=== PATIENT | female | born 1960 | race Caucasian/White ===

== ENCOUNTER 2017-01-09 11:56 | Emergency (ER) | payer OTHER ==
[~2017-01-09] VITALS: Ht 162.6 cm; Wt 111.0 kg
[~2017-01-09 11:56] MED LIST: AMIO200 PO; ASPI81 PO; ATOR40TA49 PO; B COTAB7 PO; BIOT5000 PO; DOCU1CAP39 PO; FISH500C PO; FURO1TAB93 PO; KCL20 PO; LEVO200T31 PO; METO25 PO; PLAV75TA PO; PROV200T11 PO; RED600TA PO; THERM PO; TURM450C PO; ULTR50TA PO; VENL75XR PO; VITATAB25 PO
[2017-01-09 12:09] VITALS: BP 123/57; PULSE 82; RESP 16; TEMP 99.3; O2SAT 98
--- NOTE | 2017-01-09 12:36 | PD ---
HPI Chief Complaint: Headache Time Seen by Provider: 12:35 Travel History International Travel<30 days: No Contact w/Intl Traveler<30days: No Traveled to known affect area: No History of Present Illness HPI while camping inadvertently stepped on stray cat which then bit her left "pinky toe" and now redness to left chan and pain has started to occur, not on any antibiotic treatment. feels weak, unknown vax status of cat, PFSH Past Medical History Blood Disorders: No Anxiety: Yes Depression: Yes Heart Rhythm Problems: Yes Cancer: No Cardiovascular Problems: Yes High Cholesterol: Yes Chest Pain: No Diabetes: Yes Diminished Hearing: No Endocrine: Yes Gastrointestinal Disorders: Yes Glaucoma: Yes (LEFT EYE) Genitourinary: Yes (HX INCONTINENCE) Headaches: Yes Hepatitis: No Hiatal Hernia: No Hypertension: Yes Immune Disorder: No Musculoskeletal: No Neurologic: Yes Psychiatric: No Reproductive: No Respiratory: Yes (SLEEP APNEA) Integumentary: No Sickle Cell Disease: No Sleep Apnea: Yes Thyroid Disease: Yes (PARATHYROIDECTOMY) Tubal Ligation: Yes (1987) Past Surgical History Abdominal Surgery: Yes (ASAD) Cardiac Surgery: Yes (STENT PLACED) Section: Yes (1981) Cholecystectomy: Yes Eye Surgery: Yes (ANGULAR LASER SURGERY OU) Gynecologic Surgery: Yes (82 ; TUBAL LIGATION; RT OOPHORECT) Hysterectomy: Yes (PARTIAL- RIGHT OVARY REMOVED) Thoracic Surgery: No Other Surgery: Yes Social History Alcohol Use: Yes (OCCASSIONAL) Tobacco Use: No (FORMER SMOKER) Substance Use: No Allergies-Medications (Allergen,Severity, Reaction): Coded Allergies: No Known Allergies (Verified Adverse Reaction, Unknown, 01/09/17) Reported Meds & Prescriptions Reported Meds & Active Scripts Active Augmentin (Amoxicillin-Clavulanate) 875-125 Mg Tab 1 Tab PO BID 10 Days Reported Lipitor (Atorvastatin Calcium) 40 Mg Tab 40 Mg PO DAILY Lasix (Furosemide) 20 Mg Tab 20 Mg PO DAILY PRN K-Tab (Potassium Chloride) 20 Meq Tab 20 Meq PO DAILY PRN Modafinil 200 Mg Tab 200 Mg PO DAILY PRN Aspirin 325 Mg Tab 325 Mg PO DAILY Multi Vitamin Daily (Multiple Vitamin) 1 Tab Tab 1 Tab PO DAILY Plavix (Clopidogrel Bisulfate) 75 Mg Tab 75 Mg PO DAILY Levothyroxine (Levothyroxine Sodium) 200 Mcg Tab 200 Mcg PO DAILY Metoprolol Tartrate 25 Mg Tab 12.5 Mg PO BID Tramadol (Tramadol HCl) 50 Mg Tab 75 Mg PO TID PRN Effexor (Venlafaxine HCl) 75 Mg Tab 75 Mg PO DAILY Review of Systems Except as stated in HPI: all other systems reviewed are Neg General / Constitutional: No: Fever Eyes: No: Visual changes HENT: No: Headaches Cardiovascular: No: Chest Pain or Discomfort Respiratory: No: Shortness of Breath Gastrointestinal: No: Abdominal Pain Genitourinary: No: Dysuria Musculoskeletal: No: Pain Skin: Positive Rash Neurologic: No: Weakness Psychiatric: No: Depression Endocrine: No: Polydipsia Hematologic/Lymphatic: No: Easy Bruising Physical Exam Narrative GENERAL: SKIN: Warm and dry. ANTERIOR LEFT CHAN HAS CELLULITIC CHANGES WITHOUT LEG EDEMA , NO STREAKING, NO LAD, NO POST FOSSA TTP HEAD: Atraumatic. Normocephalic. EYES: Pupils equal and round. No scleral icterus. No injection or drainage. ENT: No nasal bleeding or discharge. Mucous membranes pink and moist. NECK: Trachea midline. No JVD. CARDIOVASCULAR: Regular rate and rhythm. RESPIRATORY: No accessory muscle use. Clear to auscultation. Breath sounds equal bilaterally. GASTROINTESTINAL: Abdomen soft, non-tender, nondistended. Hepatic and splenic margins not palpable. MUSCULOSKELETAL: Extremities without clubbing, cyanosis, or edema. No obvious deformities. NEUROLOGICAL: Awake and alert. No obvious cranial nerve deficits. Motor grossly within normal limits. Five out of 5 muscle strength in the arms and legs. Normal speech. PSYCHIATRIC: Appropriate mood and affect; insight and judgment normal. Data Data Last Documented VS Orders Orders Rabies Vaccine Human Cell Inj (Imovax In (01/09/17 12:45) Clindamycin 900 Mg Premix (Cleocin 900 M (01/09/17 12:45) Iv Access Insert/Monitor (01/09/17 12:43) Blood Culture (01/09/17 13:29) Ed Discharge Order (01/09/17 13:49) [facility] Medical Decision Making Medical Screen Exam Complete: Yes Emergency Medical Condition: Yes Medical Record Reviewed: Yes Differential Diagnosis CELLULITIS V LYMPHANGITIS V ABSCESS Narrative Course AFTER EVALUATION PATIENT REVEAL NO STREAKING TO SUGGEST LYMPHANGITIS NOR ANY RAISED EDEMA/OR FLUCTUANCE TO SUGGEST ABSCESS...PATIENT CLINICALLY HAS CELLULITIS FROM CAT BITE Diagnosis Primary Impression: Cat bite Qualified Codes: W55.01XA - Bitten by cat, initial encounter Additional Impression: CELLULITIS Patient Instructions: Animal Bite (ED), General Instructions Scripts Amoxicillin-Clavulanate (Augmentin) 875-125 Mg Tab 1 TAB PO BID for Infection for 10 Days, #20 TAB 0 Refills Prov: Gary Harrison MD 01/09/17 Disposition: 01 DISCHARGE HOME Condition: Stable Gary Harrison MD Jan 09, 2017 12:36
[2017-01-09] MEDS ORDERED: RABIES VACCINE HUMAN DIPL CELL 2.5 UNITS/ML SYRINGE IM ONE (12:45)
[2017-01-09] MEDS ORDERED: CLINDAMYCIN 900 MG/DEX PREMIX 50 ML IV ONE (12:45)
[2017-01-09] MEDS ORDERED: TRAM50TA PO (13:02)
[2017-01-09] MEDS ORDERED: VENL75TA PO (13:02)
[2017-01-09] MEDS ORDERED: PLAV75TA29 PO (13:12)
[2017-01-09] MEDS ORDERED: LEVO200T4 PO (13:12)
[2017-01-09] MEDS ORDERED: METO25TA3 PO (13:12)
[2017-01-09] MEDS ORDERED: MULT1TAB46 PO (13:24)
[2017-01-09] MEDS ORDERED: POTA1TAB4 PO (13:24)
[2017-01-09] MEDS ORDERED: FURO1TAB62 PO (13:24)
[2017-01-09] MEDS ORDERED: ASPI-183 PO (13:24)
[2017-01-09] MEDS ORDERED: MODA200T12 PO (13:24)
[2017-01-09] MEDS ORDERED: AUGM875T3 PO (13:30)
[2017-01-09] MEDS ORDERED: LIPI40TA PO (14:16)
[2017-01-09 15:49] VITALS: BP 119/62
== END 2017-01-09 15:50 | disposition home or self-care (01) ==
LOC: PHED 11:56
DX: S91.155A Open bite of left lesser toe(s) without damage to nail, initial encounter (principal); L03.032 Cellulitis of left toe; W55.01XA Bitten by cat, initial encounter; Z23 Encounter for immunization
CPT/HCPCS: 87040; 90471; 90675; 96365